=== PATIENT | male | born 1970 | race Caucasian/White ===

== ENCOUNTER 2016-09-04 17:28 | Emergency (ER) | payer BC, OTHER ==
[~2016-09-04] VITALS: Ht 172.7 cm; Wt 96.0 kg
[2016-09-04 17:37] VITALS: Ht 172.7 cm; Wt 96.0 kg
--- NOTE | 2016-09-04 18:19 | EMERGENCY ROOM VISIT NOTE ---
History Report prepared by Canelo: Demetri Cowan Under the Supervision of: Dr. José Manuel Whitfield M.D. First contact with patient: 18:06 Chief Complaint: REFERRED BY DOCTOR Stated Complaint: DOC REFERRED;ABCESS ON BACKSIDE History of Present Illness The patient is a 46 year old male who presents to the Emergency Room with complaints of perirectal pain due to an abscess that started yesterday. 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 The patient states that he wiped his anus , and had some blood, but he thinks that is from a fissure that started around the beginning of the year after having constipation due to a change in his medication. The patient says that he is seeing his doctor for that early next week. He notes that he went to urgent care earlier today, and was referred here for further evaluation. The patient denies any fevers, vomiting, rectal drainage , or testicle pain. He has not had any prior surgeries on his backside. He has a history of hypertension, diabetes, and GERD. He notes that his sugars have been under control lately with Metformin. The patient has a history of hemorrhoid issues as well. He is not on any blood thinners. He has not had any alcohol intake in the past 24 hours. Source of History: patient Onset: Yesterday Position: other (perirectal) Quality: other (pain, abscess) Timing: other (persistent) Associated Symptoms: No fevers, No vomiting Note: Associated symptoms: Denies rectal drainage, testicle pain. Review of Systems See HPI for pertinent positives & negatives. A total of 10 systems reviewed and were otherwise negative. Past Medical & Surgical Medical Problems: (1) Diabetes (2) GERD (gastroesophageal reflux disease) (3) Hemorrhoids (4) HTN (hypertension) Family History No pertinent family history Social History Smoking Status: Never Smoker Marital Status: in relationship Occupation Status: employed Current/Historical Medications Scheduled Amlodipine Besylate-Valsartan (Exforge), 1 TAB PO DAILY Ciprofloxacin Hcl (Cipro), 500 MG PO BID Escitalopram Oxalate (Lexapro), 1 TAB PO DAILY Metformin Hcl (Glucophage), 1,000 MG PO QAM Metronidazole (Flagyl), 500 MG PO TID Pantoprazole (Protonix), 40 MG PO DAILY Scheduled PRN Acetaminophen Tab (Tylenol), 325-650 MG PO Q4 PRN for Headache Hydroxyzine Pamoate (Vistaril), 50 MG PO TID PRN for Anxiety Ibuprofen Tab (Advil), 200-600 MG PO Q4H PRN for Headache Oxycodone Immediate Rel Tab (Roxicodone Ir), 1-2 TAB PO Q4H PRN for Severe Pain Allergies Coded Allergies: Acetaminophen (Unverified Allergy, Severe, STOPS BREATHING, 09/04/16) Hydrocodone (Unverified Allergy, Severe, STOPS BREATHING, 09/04/16) Amoxicillin (Unverified Allergy, Intermediate, UNKNOWN, 09/04/16) Hydromorphone (Verified Allergy, Intermediate, itching, 09/04/16) Prednisone (Verified Allergy, Unknown, INTOLERANCE, 03/14/09) Uncoded Allergies: PREDNISONE (Allergy, Unknown, 03/22/02) Physical Exam Vital Signs Date Time Temp Pulse Resp B/P (MAP) Pulse Ox O2 Delivery O2 Flow Rate FiO2 09/04/16 21:19 36.8 78 18 134/93 94 09/04/16 21:17 78 18 134/93 94 Room Air 09/04/16 17:37 36.8 80 18 135/95 94 Room Air Physical Exam GENERAL: Patient is uncomfortable appearing and in moderate distress. HEENT: No acute trauma, normocephalic atraumatic, mucous membranes moist, no nasal congestion, no scleral icterus. NECK: No stridor, no adenopathy, no meningismus, trachea is midline. LUNGS: No dyspnea. Clear to auscultation and equal bilaterally. No wheeze, no rhonchi. HEART: Regular rate and rhythm. No murmurs, rubs, gallops appreciated. ABDOMEN: Soft, nontender, bowel sounds positive, no masses appreciated, no peritonitis. BACK: No midline tenderness, no CVA tenderness EXTREMITIES: Normal motion all extremities, no cyanosis, no edema. RECTAL: Tender/swollen area without erythema just anterior to rectum. Significant tenderness to palpation, no involvement of scrotum. NEUROLOGIC: Alert and oriented, no acute motor or sensory deficits, no focal weakness, cranial nerves grossly intact. SKIN: No rash, no jaundice, no diaphoresis. Medical Decision & Procedures ER Provider Diagnostic Interpretation: CT results are stated below per my interpretation and the radiologist's interpretation. PELVIS NO IV/ORAL CONT (CT) CLINICAL HISTORY: Swelling anterior to rectum. Presume abscess. COMPARISON STUDY: No previous studies for comparison. TECHNIQUE: Axial images of the pelvis were obtained without IV contrast. FINDINGS: No definite perirectal or perianal abscess is identified. There is slight asymmetric density within the right anterior ischioanal space shown on axial image 206 of 247. Note is made of left colon diverticulosis without evidence for acute diverticulitis within visualized portions of the colon. The appendix is normal. No suspicious osseous lesions are present. There is no pelvic lymphadenopathy. There is no pelvic fluid collection. There is a small fat-containing left inguinal hernia. IMPRESSION: No definite perirectal/perianal abscess identified. Slight asymmetric density within the right anterior ischioanal space. This is likely within normal limits although a tiny fistula or abscess could appear similar. Electronically signed by: Rodrick Lopes M.D. 09/04/2016 8:03 PM Dictated Date/Time: 09/04/2016 7:55 PM Laboratory Results 09/04/16 18:35 Red Blood Count 4.81, Mean Corpuscular Volume 92.5, Mean Corpuscular Hemoglobin 32.0, Mean Corpuscular Hemoglobin Concent 34.6, Mean Platelet Volume 10.6, Neutrophils (%) (Auto) 52.7, Lymphocytes (%) (Auto) 35.6, Monocytes (%) (Auto) 9.2, Eosinophils (%) (Auto) 1.6, Basophils (%) (Auto) 0.4, Neutrophils # (Auto) 5.82, Lymphocytes # (Auto) 3.93, Monocytes # (Auto) 1.01, Eosinophils # (Auto) 0.18, Basophils # (Auto) 0.04 09/04/16 18:35 Test 09/04/16 18:35 White Blood Count 11.03 K/uL (4.8-10.8) Red Blood Count 4.81 M/uL (4.7-6.1) Hemoglobin 15.4 g/dL (14.0-18.0) Hematocrit 44.5 % (42-52) Mean Corpuscular Volume 92.5 fL (80-100) Mean Corpuscular Hemoglobin 32.0 pg (25-34) Mean Corpuscular Hemoglobin Concent 34.6 g/dl (32-36) Platelet Count 318 K/uL (130-400) Mean Platelet Volume 10.6 fL (7.4-10.4) Neutrophils (%) (Auto) 52.7 % Lymphocytes (%) (Auto) 35.6 % Monocytes (%) (Auto) 9.2 % Eosinophils (%) (Auto) 1.6 % Basophils (%) (Auto) 0.4 % Neutrophils # (Auto) 5.82 K/uL (1.4-6.5) Lymphocytes # (Auto) 3.93 K/uL (1.2-3.4) Monocytes # (Auto) 1.01 K/uL (0.11-0.59) Eosinophils # (Auto) 0.18 K/uL (0-0.5) Basophils # (Auto) 0.04 K/uL (0-0.2) RDW Standard Deviation 40.7 fL (36.4-46.3) RDW Coefficient of Variation 11.9 % (11.5-14.5) Immature Granulocyte % (Auto) 0.5 % Immature Granulocyte # (Auto) 0.05 K/uL (0.00-0.02) Anion Gap 7.0 mmol/L (3-11) Est Creatinine Clear Calc Drug Dose 81.5 ml/min Estimated GFR () 76.9 Estimated GFR (Non- 66.4 BUN/Creatinine Ratio 10.0 (10-20) Calcium Level 9.0 mg/dl (8.5-10.1) Laboratory results as reviewed by me. Medications Administered Medications (Trade) Dose Ordered Sig/Bonny Route Start Time Stop Time Status Last Admin Dose Admin Sodium Chloride 1,000 ml @ 999 mls/hr Q1H1M STAT IV 09/04/16 18:25 09/04/16 19:25 DC 09/04/16 18:54 999 MLS/HR Hydromorphone HCl (Dilaudid Inj) 1 mg NOW STAT IV 09/04/16 18:38 09/04/16 18:39 DC 09/04/16 18:55 1 MG Ciprofloxacin (Cipro Tab) 500 mg NOW STAT PO 09/04/16 20:37 09/04/16 20:38 DC 09/04/16 20:59 500 MG Metronidazole (Flagyl Tab) 500 mg NOW STAT PO 09/04/16 20:37 09/04/16 20:38 DC 09/04/16 20:59 500 MG Oxycodone HCl (Roxicodone Immediate Rel 5MG Home Pack) 1 homepack UD ONCE PO 09/04/16 20:45 09/04/16 20:46 DC 09/04/16 20:59 1 HOMEPACK Diphenhydramine HCl (Benadryl Inj) 25 mg NOW STAT IV 09/04/16 20:54 09/04/16 20:55 DC 09/04/16 20:59 25 MG ED Course 1808: The patient was evaluated in room C3. A complete history and physical exam was performed. 1821: I discussed the patient with Dr. Bose - [facility] general surgery - he advised a CT without contrast. 1824: Ordered NSS 1000 ml @ 999 mls/hr IV. 1836: I reevaluated the patient and he is comfortable with the plan. I discussed IV pain medications and he says that he does not need to drive for the next couple days. 1837: Ordered Dilaudid Inj 1 mg IV. 2017: I discussed the patient with Dr. Lidya Crawford [facility] - he notes to start the patient on Cipro Flagyl. 2035: I reevaluated the patient and he is feeling better with the Dilaudid. He notes that the pain is coming back a little bit. The patient verbally expressed understanding and agreement of the treatment plan. The patient will be discharged. 2036: Ordered Cipro Tab 500 mg PO, Roxicodone Immediate Rel 5MG Home Pack 1 homepack PO. 2053: Ordered Benadryl Inj 25 mg IV. 2055: The patient is requesting a donut to sit on. Medical Decision 46 yr old male with early phlegmon to anterior rectum that per CT hasn't yet become abscess. No evidence of forniers at this time. BG mildly elevated though patient admits this is chronic. Has Gen Surg eval in 4 days thus seems reasonable to treat with PO abx and see if this helps avoid abscess formation. Patient comfortable with this plan. Has laxatives at home which I stressed he should use as on pain medications. 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 Reviewed symptoms requiring return. He is not septic at this time and I think it reasonable to discharge with the close follow up he already has planned. Medication Reconcilliation Current Medication List: was personally reviewed by me Blood Pressure Screening Patient's blood pressure: Elevated blood pressure Blood pressure disposition: Elevated BP felt to be situational Consults Time Called: 1819 Consulting Physician: Dr. Lidya Cohen general surgery Returned Call: 1821 I discussed the patient with Dr. Lidya Cohen general surgery - he advised a CT without contrast. Additional Consults: Time Called: 2014 Consulted Physician: Dr. Lidya Cohen general surgery Returned Call: 2017 Additional Comments: I discussed the patient with Dr. Lidya Cohen general surgery - he notes to start the patient on Cipro Flagyl. Impression Primary Impression: Perirectal inflammation Scribe Attestation The scribe's documentation has been prepared under my direction and personally reviewed by me in its entirety. I confirm that the note above accurately reflects all work, treatment, procedures, and medical decision making performed by me. Departure Information Dispostion Home / Self-Care Prescriptions Oxycodone Immediate Rel Tab (ROXICODONE IR) 5 Mg Tab 1-2 TAB PO Q4H Y for Severe Pain, #20 TAB Prov: José Manuel Whitfield M.D. 09/04/16 Metronidazole (FLAGYL) 500 Mg Tab 500 MG PO TID for 10 Days, #30 TAB Prov: José Manuel Whitfield M.D. 09/04/16 Ciprofloxacin Hcl (CIPRO) 500 Mg Tab 500 MG PO BID, #20 TAB Prov: José Manuel Whitfield M.D. 09/04/16 Referrals Dino Greenberg M.D. (PCP) Patient Instructions [facility] Additional Instructions Use stool softener until loose stools. Return if worsening pain, fevers, swelling, drainage, etc. You must be seen by your surgeon as planned. Monitor your blood sugars closely. Discuss your blood sugars with your primary care provider. You have received a narcotic pain medication prescription. These medications may cause drowsiness and should not be used with other sedative medications. Do not drive, drink alcohol, perform dangerous activities, nor make important decisions after taking these medications. skilled nursing use or inappropriate use may lead to addiction.
[2016-09-04] MEDS ORDERED: SODIUM CHLORIDE 0.9% 1000ML 1,000 ML IV STA (18:25)
[2016-09-04] MEDS ORDERED: IBUP-103 PO (18:27)
[2016-09-04] MEDS ORDERED: ESCI1TAB10 PO (18:27)
[2016-09-04] MEDS ORDERED: PANT40TA PO (18:27)
[2016-09-04] MEDS ORDERED: GLC/500 PO (18:27)
[2016-09-04] MEDS ORDERED: ACET325T96 PO (18:27)
[2016-09-04] MEDS ORDERED: HYDR50CA2 PO (18:27)
[2016-09-04] MEDS ORDERED: AMLO10TA PO (18:27)
[2016-09-04] MEDS ORDERED: HYDROmorphone INJ 1 MG/ML SYR IV STA (18:38)
[2016-09-04 18:52] LABS: BASO % 0.4 %; BASO ABS # 0.04 K/uL (0-0.2); COMPLETE YES; EOS % 1.6 %; HEMATOCRIT 44.5 % (42-52); IG% 0.5 %; LYMPH % 35.6 %; LYMPH ABS # 3.93 K/uL (1.2-3.4); MEAN CELL VOLUME 92.5 fL (80-100); MEAN CORPUSCULAR HGB CONC 34.6 g/dl (32-36); MEAN PLATELET VOLUME 10.6 fL (7.4-10.4); MONO % 9.2 %; NEUT % 52.7 %; PLATELET COUNT 318 K/uL (130-400); RED BLOOD COUNT 4.81 M/uL (4.7-6.1); WHITE BLOOD COUNT 11.03 K/uL (4.8-10.8)
[2016-09-04 19:13] LABS: CREATININE 1.3 mg/dl (0.60-1.40); POTASSIUM 4.2 mmol/L (3.5-5.1)
--- NOTE | 2016-09-04 20:04 | DIAGNOSTIC IMAGING REPORT ---
PELVIS NO IV/ORAL CONT (CT) CLINICAL HISTORY: Swelling anterior to rectum. Presume abscess. COMPARISON STUDY: No previous studies for comparison. TECHNIQUE: Axial images of the pelvis were obtained without IV contrast. FINDINGS: No definite perirectal or perianal abscess is identified. There is slight asymmetric density within the right anterior ischioanal space shown on axial image 206 of 247. Note is made of left colon diverticulosis without evidence for acute diverticulitis within visualized portions of the colon. The appendix is normal. No suspicious osseous lesions are present. There is no pelvic lymphadenopathy. There is no pelvic fluid collection. There is a small fat-containing left inguinal hernia. IMPRESSION: No definite perirectal/perianal abscess identified. Slight asymmetric density within the right anterior ischioanal space. This is likely within normal limits although a tiny fistula or abscess could appear similar. Electronically signed by: Rodrick Lopes M.D. 09/04/2016 8:03 PM Dictated Date/Time: 09/04/2016 7:55 PM
[2016-09-04] MEDS ORDERED: CIPROFLOXACIN 500 MG TAB PO STA (20:37)
[2016-09-04] MEDS ORDERED: HYDROmorphone INJ 0.5 MG/0.5 ML SYR IV STA (20:37)
[2016-09-04] MEDS ORDERED: METRONIDAZOLE 250 MG TAB PO STA (20:37)
[2016-09-04] MEDS ORDERED: CIPR-255 PO (20:40)
[2016-09-04] MEDS ORDERED: METR500T PO (20:40)
[2016-09-04] MEDS ORDERED: OXYC1TAB3 PO (20:40)
[2016-09-04] MEDS ORDERED: OXYCODONE IR HOME PACK PO ONE (20:45)
[2016-09-04] MEDS ORDERED: DiphenhydrAMINE HCL 50 MG/ML VIAL IV STA (20:54)
[2016-09-04 21:19] VITALS: BP 134/93; PULSE 78; TEMP 36.8; O2SAT 94
== END 2016-09-04 21:20 | disposition home or self-care (01) ==
LOC: C.EDB 17:30 → C.EDC 21:20
DX: K62.89 Other specified diseases of anus and rectum (principal); E11.9 Type 2 diabetes mellitus without complications; I10 Essential (primary) hypertension; Z79.899 Other long term (current) drug therapy

== ENCOUNTER → 2016-11-05 | Outpatient (CLI) | payer BC ==
[~2016-11-05] MED LIST: ACET325T96 PO; AMLO10TA PO; CIPR-255 PO; ESCI1TAB10 PO; GLC/500 PO; HYDR50CA2 PO; IBUP-103 PO; OXYC1TAB3 PO; PANT40TA PO
[2016-11-05 16:44] LABS: BLOOD UREA NITROGEN 13 mg/dl (7-18); BUN/CREATININE RATIO 12.2 (10-20); CARBON DIOXIDE 26 mmol/L (21-32); CHLORIDE 101 mmol/L (98-107); GLUCOSE 185 mg/dl (70-99); POTASSIUM 4.1 mmol/L (3.5-5.1); SODIUM 137 mmol/L (136-145)
== END | disposition home or self-care (01) ==
LOC: C.LABBFT 11:57
PROVIDERS: ATTEND Physician Assistant Medical
DX: Z20.2 Contact with and (suspected) exposure to infections with a predominantly sexual mode of transmission (principal); E11.65 Type 2 diabetes mellitus with hyperglycemia

== ENCOUNTER → 2016-12-27 | Outpatient (CLI) | payer BC ==
[2016-12-27 12:27] LABS: BLOOD UREA NITROGEN 11 mg/dl (7-18); CREATININE 1.21 mg/dl (0.60-1.40)
== END | disposition home or self-care (01) ==
LOC: C.LAB1850 10:24
PROVIDERS: ATTEND Orthopaedic Surgery
DX: M25.511 Pain in right shoulder (principal)

== ENCOUNTER → 2017-06-28 | Outpatient (CLI) | payer BC ==
[~2017-06-28] MED LIST changes: +ACET-1693 PO; -ACET325T96 PO; -OXYC1TAB3 PO
[2017-06-28 12:44] LABS: ALKALINE PHOSPHATASE 66 U/L (45-117); ALT/SGPT 47 U/L (12-78); AST/SGOT 24 U/L (15-37); BLOOD UREA NITROGEN 12 mg/dl (7-18); CALCIUM 8.8 mg/dl (8.5-10.1); CARBON DIOXIDE 30 mmol/L (21-32); CHOLESTEROL 198 mg/dl (0-200); CREATININE 1.07 mg/dl (0.60-1.40); GLUCOSE 131 mg/dl (70-99); LDL CHOLESTEROL CALCULATED 135 mg/dl; SODIUM 137 mmol/L (136-145); TOTAL PROTEIN 7.6 gm/dl (6.4-8.2)
[2017-06-28 13:17] LABS: HEMOGLOBIN A1C 8.2 % (4.5-5.6)
== END | disposition home or self-care (01) ==
LOC: C.LAB1850 10:22
PROVIDERS: ATTEND Nurse Practitioner Family
DX: E11.9 Type 2 diabetes mellitus without complications (principal)